=== PATIENT | female | born 1960 | race Caucasian/White ===

== ENCOUNTER 2018-10-23 21:18 | Emergency (ER) | payer MEDICAID ==
[~2018-10-23] VITALS: Ht 167.6 cm; Wt 62.6 kg
[2018-10-23 21:23] VITALS: BP 146/78
[2018-10-23 23:24] LABS: APPEARANCE,URINE CLEAR (CLEAR); BLOOD, URINE SMALL (NEGATIVE); COLOR,URINE YELLOW (YELLOW); LEUKOCYTE ESTERASE ,URINE NEGATIVE (NEGATIVE); NITRITE, URINE NEGATIVE (NEGATIVE); UGLUCOSE NEGATIVE (NEGATIVE)
[2018-10-23 23:35] LABS: BILIRUBIN,URINE NEGATIVE (NEGATIVE); RBC,URINE 3-10 (FEW) /HPF (0-5)
[2018-10-23 23:36] LABS: HYALINE CASTS, URINE 0-10 /LPF (None Seen)
[2018-10-24] MEDS: NACL 0.9% 1,000 ML IV ONE (00:35)
[2018-10-24 00:38] LABS: BASOPHILS % (AUTO) 0.3 % (0.0-2.0); EOSINOPHILS % (AUTO) 0.5 % (0.0-4.0); HEMATOCRIT 35.8 % (36-48); HEMOGLOBIN 12.3 g/dL (12.0-16.0); LYMPHOCYTES # (AUTO) 1.4 K/uL (2.5-16.5); LYMPHOCYTES % (AUTO) 14.7 % (20.5-51.1); MEAN CORPUSCULAR HEMOGLOBIN 30 pg (27-31); MEAN CORPUSCULAR HGB CONC 34 g/dL (33-37); MEAN CORPUSCULAR VOLUME 87.5 fL (80-94); MONOCYTES # (AUTO) 0.8 K/uL (0.8-1.0); MONOCYTES % (AUTO) 8.2 % (1.7-9.3); NEUTROPHILS # (AUTO) 7.1 K/uL (1.8-7.7); NEUTROPHILS % (AUTO) 76.3 % (42.2-75.2); PLATELET COUNT (AUTO) 120 K/uL (140-450); RED BLOOD CELL COUNT(AUTO) 4.09 MIL/uL (4.20-5.40); RED CELL DISTRIBUTION WIDTH 13.3 % (11.6-13.7); WHITE BLOOD COUNT (AUTO) 9.3 K/uL (4.8-10.8)
[2018-10-24] MEDS: ONDANSETRON 4 MG ODT PO ONE (00:42)
[2018-10-24 00:48] LABS: ANION GAP 11.8 (8-16); CARBON DIOXIDE 26.6 mmol/L (21-32); CREATININE 1.4 mg/dL (0.6-1.3); POTASSIUM 3.4 mmol/L (3.5-5.1)
[2018-10-24 00:52] LABS: ALBUMIN 2.1 g/dL (3.4-5.0); TOTAL BILIRUBIN 3.9 mg/dL (0.0-1.0)
[2018-10-24 02:25] VITALS: BP 122/69
== END 2018-10-24 02:25 | disposition home or self-care (01) ==
LOC: MED 21:18
DX: E86.0 Dehydration (principal); F10.20 Alcohol dependence, uncomplicated; Z88.2 Allergy status to sulfonamides
CPT/HCPCS: 36415; 80053; 81001; 82140; 85025; 87086; 87804; 96360; 96361; 99283; J7030; Q0162